=== PATIENT | female | born 1975 | race Caucasian/White ===

== ENCOUNTER → 2020-08-05 | Outpatient (CLI) | payer OTHER ==
[~2020-08-05] MED LIST: CEPH-37 PO; CYANOCOBALAMIN (B-12) 1000 MCG/1 ML VIAL IM ONE; CYANOCOBALAMIN (B-12) 1000 MCG/1 ML VIAL ONE
[2020-08-05 13:20] VITALS: BP 127/87
[2020-08-05 14:47] VITALS: BP 100/60
[2020-08-05 15:13] LABS: Albumin 2.7 g/dL (3.4-5.0); Calcium 8.7 mg/dL (8.5-10.1); Magnesium 2.3 mg/dL (1.6-2.6); Potassium 3.5 mmol/L (3.5-5.1)
[2020-08-05 15:14] LABS: BUN/Creatinine Ratio 15.2; Bilirubin, Total 3.1 mg/dL (0.2-1.0); Total Protein 7.3 g/dL (6.4-8.2)
[2020-08-05 15:24] LABS: Eosinophils # (auto) 0.1 10 ^3/uL (0-0.8); Hematocrit 32.6 % (36.0-46.0); Lymphocytes # (auto) 2.9 10 ^3/uL (0.4-5.4); Mean Corpuscular Volume 76.9 fL (80.0-100.0); Monocytes # (auto) 0.8 10 ^3/uL (0-1.3); Neutrophils # (auto) 1.8 10 ^3/uL (1.6-8.6); Red Blood Cells 4.24 10^6/uL (4.0-5.20)
[2020-08-05 15:26] LABS: Basophils # (auto) 0.1 10 ^3/uL (0-0.2); Eosinophils % (auto) 2.3 % (0.0-7.0); Hemoglobin 10.4 g/dL (12.2-16.2); Lymphocytes % (auto) 50.9 % (10.0-50.0); Mean Corpuscular Hemoglobin 24.4 pg (28.0-32.0); Mean Corpuscular Hgb Conc. 31.8 g/dL (32.0-36.0); Monocytes % (auto) 14.5 % (0.0-12.0); Neutrophils % (auto) 31.3 % (37.0-80.0); Nucleated Red Blood Cells % 0.4 %; Platelet Count (auto) 202 10^3/uL (140-450); White Blood Cell 5.8 10^3/uL (4.4-10.8)
[2020-08-05 15:34] LABS: Red Cell Distribution Width 21.1 % (11.8-14.3)
== END | disposition home or self-care (01) ==
LOC: CHF HDHVI 13:24
PROVIDERS: ATTEND Internal Medicine
DX: I27.0 Primary pulmonary hypertension (principal); I51.7 Cardiomegaly; R53.83 Other fatigue; R06.02 Shortness of breath; G43.909 Migraine, unspecified, not intractable, without status migrainosus; Z87.891 Personal history of nicotine dependence
CPT/HCPCS: 36415; 71046; 80053; 83735; 83880; 85025; 96372; G0463; J3420

== ENCOUNTER 2020-09-09 22:02 | Inpatient (IN) | payer MEDICAID, OTHER ==
[~2020-09-09] VITALS: Ht 152.4 cm; Wt 105.5 kg
[~2020-09-09 22:02] MED LIST changes: -CYANOCOBALAMIN (B-12) 1000 MCG/1 ML VIAL IM ONE; -CYANOCOBALAMIN (B-12) 1000 MCG/1 ML VIAL ONE
[2020-09-09 23:04] LABS: Basophils # (auto) 0.1 10 ^3/uL (0-0.2); Eosinophils # (auto) 0.1 10 ^3/uL (0-0.8); Hemoglobin 10.9 g/dL (12.2-16.2); Mean Corpuscular Hgb Conc. 31.3 g/dL (32.0-36.0); Monocytes # (auto) 0.9 10 ^3/uL (0-1.3); Neutrophils # (auto) 4.2 10 ^3/uL (1.6-8.6); White Blood Cell 7.8 10^3/uL (4.4-10.8)
[2020-09-09 23:06] LABS: Basophils % (auto) 0.9 % (0.0-2.0); Eosinophils % (auto) 1.2 % (0.0-7.0); Hematocrit 34.8 % (36.0-46.0); Lymphocytes # (auto) 2.6 10 ^3/uL (0.4-5.4); Lymphocytes % (auto) 33.4 % (10.0-50.0); Mean Corpuscular Hemoglobin 23.9 pg (28.0-32.0); Mean Corpuscular Volume 76.3 fL (80.0-100.0); Monocytes % (auto) 10.9 % (0.0-12.0); Neutrophils % (auto) 53.6 % (37.0-80.0); Nucleated Red Blood Cells % 0.3 %; Red Blood Cells 4.57 10^6/uL (4.0-5.20)
[2020-09-09 23:29] LABS: Albumin 2.9 g/dL (3.4-5.0); Calcium 8.5 mg/dL (8.5-10.1); Potassium 4.2 mmol/L (3.5-5.1)
[2020-09-09 23:34] LABS: BUN/Creatinine Ratio 11.8; Total Protein 7.7 g/dL (6.4-8.2)
[2020-09-10] MEDS ORDERED: IOHEXOL 300 MG/ML 100ML BOTTLE IJ ONE (04:43)
[2020-09-10] MEDS ORDERED: FUROSEMIDE 40 MG/4 ML VIAL IV ONE (06:15)
[2020-09-10] MEDS ORDERED: NITROGLYCERIN 0.4 MG SL TAB SL PRN (08:30)
[2020-09-10] MEDS ORDERED: MORPHINE SULF INJ 2 MG/ML SYRINGE 1ML IV PRN (08:30)
[2020-09-10] MEDS ORDERED: ONDANSETRON HCL 4 MG/2 ML VIAL IV PRN (08:30)
[2020-09-10] MEDS ORDERED: HYDROcodone-ACET 5/325MG TAB PO PRN (08:30)
[2020-09-10 09:51] LABS: Urine Bacteria FEW /hpf (None Seen); Urine Blood Negative /uL (Negative); Urine Mucus FEW (None Seen); Urine WBC 7 /hpf (0 - 5)
[2020-09-10] MEDS ORDERED: ENOXAPARIN SOD 40 MG/0.4 ML SYRINGE SC SCH (10:00)
[2020-09-10 10:12] LABS: Urine Specific Gravity 1.048 (1.001-1.035)
[2020-09-10 10:23] VITALS: BP 93/69
[2020-09-10] MEDS: HYDROCORTONE 1% TOPICAL CREAM 30 GM TUBE TOP SCH ×2 (12:40→22:10)
[2020-09-10] MEDS ORDERED: ACETAMINOPHEN 500 MG TAB PO PRN (12:45)
[2020-09-10 13:00] VITALS: BP 107/78
[2020-09-10 16:45] VITALS: BP 98/67
[2020-09-10] MEDS ORDERED: AMIODARONE HCL 150 MG in D5W 5% 100 ML IV ONE (17:00)
[2020-09-10] MEDS ORDERED: CARV3.1240 PO (17:07)
[2020-09-10] MEDS ORDERED: TRAM50TA2 PO (17:07)
[2020-09-10] MEDS ORDERED: AMIODARONE 450mg/250ml AE 250 ML IV SCH (17:15)
[2020-09-10] MEDS: FUROSEMIDE 40 MG/4 ML VIAL IV SCH (17:16)
[2020-09-10] MEDS: POTASSIUM CHL 20 Meq TABLET PO SCH (17:17)
[2020-09-10] MEDS: ENOXAPARIN SOD 100 MG/1 ML SYRINGE SC SCH (22:10)
[2020-09-10 22:25] VITALS: BP 110/69
[2020-09-10] MEDS: metOLazone 5 MG TAB PO SCH (23:32)
[2020-09-11 04:52] VITALS: BP 103/76
[2020-09-11] MEDS: FUROSEMIDE 40 MG/4 ML VIAL IV SCH ×2 (06:20→18:27)
[2020-09-11] MEDS: POTASSIUM CHL 20 Meq TABLET PO SCH ×2 (06:20→18:27)
[2020-09-11 07:28] LABS: Potassium 3.7 mmol/L (3.5-5.1)
[2020-09-11 07:44] LABS: BUN/Creatinine Ratio 13.3; Calcium 8.9 mg/dL (8.5-10.1)
[2020-09-11] MEDS: ENOXAPARIN SOD 100 MG/1 ML SYRINGE SC SCH ×2 (08:32→08:48)
[2020-09-11] MEDS: metOLazone 5 MG TAB PO SCH ×2 (08:34→21:57)
[2020-09-11] MEDS: FAMOTIDINE 20 MG TAB PO SCH (08:35)
[2020-09-11] MEDS: AMIODARONE 450mg/250ml AE 250 ML IV SCH ×3 (08:37→23:43)
[2020-09-11 08:49] VITALS: BP 98/78
[2020-09-11 09:58] LABS: Alcohol, Urine < 3.0 mg/dL (0-10); Amphetamine Screen, Urine POSITIVE (NEGATIVE); Barbiturate Scree,Urine NEGATIVE (NEGATIVE); Benzodiazephine Screen, Urine NEGATIVE (NEGATIVE); Cannabinoid Screen, Urine NEGATIVE (NEGATIVE); Cocaine Screen, Urine NEGATIVE (NEGATIVE); Opiate Scree,Urine NEGATIVE (NEGATIVE); Phencyclidine Screen, Urine NEGATIVE (NEGATIVE)
[2020-09-11 13:00] VITALS: BP 110/62
[2020-09-11] MEDS: HYDROCORTONE 1% TOPICAL CREAM 30 GM TUBE TOP SCH ×2 (15:51→21:25)
[2020-09-11] MEDS ORDERED: SPIRONOLACTONE 25 MG TAB PO ONE (16:00)
[2020-09-11] MEDS ORDERED: metOLazone 5 MG TAB PO ONE (16:00)
[2020-09-11 16:38] VITALS: BP 102/74
[2020-09-11 22:00] VITALS: BP 108/66
[2020-09-12 05:00] VITALS: BP 109/63
[2020-09-12 06:07] LABS: Basophils # (auto) 0 10 ^3/uL (0-0.2); Basophils % (auto) 0.7 % (0.0-2.0); Eosinophils # (auto) 0.2 10 ^3/uL (0-0.8); Eosinophils % (auto) 2.4 % (0.0-7.0); Hematocrit 32.9 % (36.0-46.0); Hemoglobin 10.9 g/dL (12.2-16.2); Lymphocytes # (auto) 2.5 10 ^3/uL (0.4-5.4); Lymphocytes % (auto) 39.6 % (10.0-50.0); Mean Corpuscular Hemoglobin 25.1 pg (28.0-32.0); Mean Corpuscular Hgb Conc. 33.1 g/dL (32.0-36.0); Mean Corpuscular Volume 75.9 fL (80.0-100.0); Monocytes # (auto) 0.9 10 ^3/uL (0-1.3); Monocytes % (auto) 14.2 % (0.0-12.0); Neutrophils # (auto) 2.7 10 ^3/uL (1.6-8.6); Neutrophils % (auto) 43.1 % (37.0-80.0); Nucleated Red Blood Cells % 0.4 %; Red Blood Cells 4.33 10^6/uL (4.0-5.20); White Blood Cell 6.3 10^3/uL (4.4-10.8)
[2020-09-12 06:08] LABS: Red Cell Distribution Width 22.9 % (11.8-14.3)
[2020-09-12] MEDS: POTASSIUM CHL 20 Meq TABLET PO SCH ×2 (06:21→17:18)
[2020-09-12 06:22] LABS: INR 1.43 (0.9-1.15); Partial Thromboplastin Time 30.5 sec (23.0-31.2)
[2020-09-12] MEDS: FUROSEMIDE 40 MG/4 ML VIAL IV SCH ×2 (06:22→17:18)
[2020-09-12 06:28] LABS: Potassium 2.4 mmol/L (3.5-5.1)
[2020-09-12 06:29] LABS: BUN/Creatinine Ratio 15.1
[2020-09-12] MEDS ORDERED: POTASSIUM CHL 20 Meq TABLET PO ONE (06:45)
[2020-09-12] MEDS ORDERED: POTASSIUM CHL 20MEQ/100ML 100 ML IV SCH (06:45)
[2020-09-12 09:00] VITALS: BP 105/74
[2020-09-12] MEDS ORDERED: POTASSIUM EFFERVESENT TAB 25 MEQ PO ONE ×2 (09:45)
[2020-09-12] MEDS: AMIODARONE HCL 200 MG TAB PO SCH ×2 (10:26→21:21)
[2020-09-12] MEDS: ENOXAPARIN SOD 100 MG/1 ML SYRINGE SC SCH ×2 (10:26→10:29)
[2020-09-12] MEDS: FAMOTIDINE 20 MG TAB PO SCH (10:26)
[2020-09-12] MEDS: metOLazone 5 MG TAB PO SCH ×2 (10:27→21:21)
[2020-09-12] MEDS: HYDROCORTONE 1% TOPICAL CREAM 30 GM TUBE TOP SCH ×2 (10:27→21:30)
[2020-09-12] MEDS: APIXABAN 5 MG TAB PO SCH ×2 (11:53→21:20)
[2020-09-12 13:00] VITALS: BP 100/69
[2020-09-12 16:40] VITALS: BP 86/48
[2020-09-12 22:00] VITALS: BP 114/82
[2020-09-13 05:00] VITALS: BP 106/46
[2020-09-13] MEDS: FUROSEMIDE 40 MG/4 ML VIAL IV SCH (06:00)
[2020-09-13] MEDS: POTASSIUM CHL 20 Meq TABLET PO SCH (06:15)
[2020-09-13 06:21] LABS: Basophils # (auto) 0.1 10 ^3/uL (0-0.2); Basophils % (auto) 0.9 % (0.0-2.0); Monocytes # (auto) 0.8 10 ^3/uL (0-1.3); White Blood Cell 6.3 10^3/uL (4.4-10.8)
[2020-09-13 06:23] LABS: Eosinophils # (auto) 0.1 10 ^3/uL (0-0.8); Hematocrit 31.9 % (36.0-46.0); Hemoglobin 10.5 g/dL (12.2-16.2); Lymphocytes # (auto) 2.5 10 ^3/uL (0.4-5.4); Lymphocytes % (auto) 40.2 % (10.0-50.0); Mean Corpuscular Hemoglobin 25.3 pg (28.0-32.0); Mean Corpuscular Hgb Conc. 33.1 g/dL (32.0-36.0); Mean Corpuscular Volume 76.4 fL (80.0-100.0); Monocytes % (auto) 12.7 % (0.0-12.0); Neutrophils # (auto) 2.8 10 ^3/uL (1.6-8.6); Neutrophils % (auto) 44.2 % (37.0-80.0); Nucleated Red Blood Cells % 0.3 %; Red Blood Cells 4.17 10^6/uL (4.0-5.20)
[2020-09-13 06:28] LABS: Red Cell Distribution Width 22.1 % (11.8-14.3)
[2020-09-13 06:44] LABS: Calcium 8.7 mg/dL (8.5-10.1); Potassium 3.1 mmol/L (3.5-5.1)
[2020-09-13 06:46] LABS: BUN/Creatinine Ratio 16.5
[2020-09-13 09:00] VITALS: BP 128/69
[2020-09-13] MEDS: FAMOTIDINE 20 MG TAB PO SCH (09:16)
[2020-09-13] MEDS: AMIODARONE HCL 200 MG TAB PO SCH (09:16)
[2020-09-13] MEDS: APIXABAN 5 MG TAB PO SCH (09:16)
[2020-09-13] MEDS: metOLazone 5 MG TAB PO SCH (09:18)
[2020-09-13] MEDS: HYDROCORTONE 1% TOPICAL CREAM 30 GM TUBE TOP SCH (09:18)
[2020-09-13] MEDS ORDERED: FURO1TAB31 PO (11:09)
[2020-09-13] MEDS ORDERED: AMIO200T4 PO (11:09)
[2020-09-13] MEDS ORDERED: APIX5TAB PO (11:09)
[2020-09-13] MEDS ORDERED: POTA-220 PO (11:09)
[2020-09-13 12:06] VITALS: BP 128/69
== END 2020-09-13 14:00 | disposition home health service (06) | DRG 194 ==
LOC: ER 22:02 → TELE 09-10 08:29 → TELE-CENTR 09-10 10:15
PROVIDERS: ADMIT Hospitalist; ATTEND Hospitalist
DX: I11.0 Hypertensive heart disease with heart failure (principal); I27.20 Pulmonary hypertension, unspecified; I31.3 Pericardial effusion (noninflammatory); E66.01 Morbid (severe) obesity due to excess calories; I27.29 Other secondary pulmonary hypertension; R18.8 Other ascites; R14.0 Abdominal distension (gaseous); Z20.822 Contact with and (suspected) exposure to COVID-19; F17.210 Nicotine dependence, cigarettes, uncomplicated; F19.129 Other psychoactive substance abuse with intoxication, unspecified; I48.91 Unspecified atrial fibrillation; I50.33 Acute on chronic diastolic (congestive) heart failure; K59.00 Constipation, unspecified; L29.9 Pruritus, unspecified; K21.9 Gastro-esophageal reflux disease without esophagitis; M79.89 Other specified soft tissue disorders; R71.8 Other abnormality of red blood cells; Z79.899 Other long term (current) drug therapy; Z79.891 Long term (current) use of opiate analgesic; Z79.01 Long term (current) use of anticoagulants; Z82.49 Family history of ischemic heart disease and other diseases of the circulatory system; Z91.11 Patient's noncompliance with dietary regimen; Z91.14 Patient's other noncompliance with medication regimen; Z98.891 History of uterine scar from previous surgery; Z83.49 Family history of other endocrine, nutritional and metabolic diseases; I50.9 Heart failure, unspecified
CPT/HCPCS: 36415; 71045; 74177; 80048; 80053; 80307; 81001; 83735; 83880; 84484; 84702; 85025; 85049; 85379; 85610; 85730; 87426; 93005; 93306; 93970; 96374; G0378; J3480; J7060